=== PATIENT | female | born 1985 ===

== ENCOUNTER 2019-12-04 19:53 | Emergency (ER) | payer BC ==
[2019-12-04] MEDS ORDERED: Hydromorphone 1 mg/ml Ampule IV ONE (20:04)
[2019-12-04] MEDS ORDERED: Ativan 2 MG/1 ML VIAL IV ONE (20:04)
[2019-12-04] MEDS ORDERED: Ativan 2 MG/1 ML VIAL ONE (20:25)
[2019-12-04] MEDS ORDERED: Hydromorphone 1 mg/ml Ampule ONE (20:25)
--- NOTE | 2019-12-04 21:02 | ERPHSYRPT ---
- History of Present Illness Time Seen by Provider: 12/04/19 20:22 Source: patient Exam Limitations: no limitations Patient Subjective Stated Complaint: pt fell down some steps on the bleachers at the [employer]. Triage Nursing Assessment: pt fell down a couple stairs at the [employer] gym at the basketball game, rt ankle displaced and swollen. Physician History: Patient has obvious fracture and dislocation of right ankle. Patient had a fall just prior to arrival. No other injuries. Location: right ankle and leg Quality: sharp Radiation: up right leg Severity: moderate Duration: just [employer] Timing: after fall Modifying factors/associated signs and symptoms: no meds or anything tried Allergies/Adverse Reactions: naproxen [From Aleve] Adverse Reaction (Verified 12/04/19 20:20) Swelling of Face Home Medications: No Reportable Medications [No Reported Medications] 12/04/19 [History] Hx Tetanus, Diphtheria Vaccination/Date Given: (unknown) Hx Influenza Vaccination/Date Given: No Hx Pneumococcal Vaccination/Date Given: No Immunizations Up to Date: No - Review of Systems Constitutional: No Fever, No Chills Eyes: No Symptoms Ears, Nose, & Throat: No Symptoms Respiratory: No Cough, No Dyspnea Cardiac: No Chest Pain, No Edema, No Syncope Abdominal/Gastrointestinal: No Abdominal Pain, No Nausea, No Vomiting, No Diarrhea Genitourinary Symptoms: No Dysuria Musculoskeletal: Deformity (right ankle deformity), Injury, Other, No Back Pain , No Neck Pain Skin: No Rash Neurological: No Dizziness, No Focal Weakness, No Sensory Changes Psychological: No Symptoms Endocrine: No Symptoms All Other Systems: Reviewed and Negative - Past Medical History Pertinent Past Medical History: No Neurological History: No Pertinent History ENT History: No Pertinent History Cardiac History: No Pertinent History Respiratory History: No Pertinent History Endocrine Medical History: No Pertinent History Musculoskeletal History: No Pertinent History GI Medical History: No Pertinent History History: No Pertinent History Psycho-Social History: No Pertinent History Female Reproductive Disorders: No Pertinent History - Past Surgical History Past Surgical History: No - Social History Smoking Status: Never smoker Exposure to second hand smoke: No Drug Use: none Patient Lives Alone: No - Female History Hx Last Menstrual Period: 2 weeks ago Hx Now: No - Nursing Vital Signs Nursing Vital Signs: Initial Vital Signs Temperature 98.4 F 12/04/19 20:00 Pulse Rate 94 H 12/04/19 20:00 Respiratory Rate 18 12/04/19 20:00 Blood Pressure 127/83 12/04/19 20:00 O2 Sat by Pulse Oximetry 97 12/04/19 20:00 Pain Scale Pain Intensity 8 - [place] Coma Score Best Eye Response (Nanette): (4) open spontaneously Best Verbal Response (Nanette): (5) oriented Best Motor Response (Chester): (6) obeys commands [place] Total: 15 - Physical Exam General Appearance: no apparent distress, alert Head Injury: no evidence of injury Eye Exam: PERRL/EOMI ENT Exam: airway nml Neck Exam: normal inspection, No tenderness Respiratory/Chest Exam: normal breath sounds, No chest tenderness, No respiratory distress Cardiovascular Exam: normal heart sounds, regular rate/rhythm Gastrointestinal Exam: soft, No tenderness, No distention, No guarding, No ecchymosis Back Exam: normal inspection, No vertebral tenderness Extremity Exam: normal inspection, normal range of motion, pelvis stable, No deformities Neurologic Exam: alert, oriented x 3, cooperative, sensation nml, No motor deficits Skin Exam: normal color, warm, dry SpO2 Interpretation: normal SpO2: 97 Comment: Obvious right ankle fracture and deformity. No skin tenting. moving all toes, sensation intact. 2+ capillary refill, 2 point tactile discrimination intact. Decrease strength and range of motion with pain. Compartments are soft, nontender. Procedures - Joint Reduction Timeout: Performed Joint Reduction Site: Right, ankle Conscious Sedation: No Reduction Attempts: 1 Pre-Procedure Neurovascular Exam: neurovascular intact, well perfused, no neuro deficit Post Procedure Neurovascular Exam: neurovascular intact, good alignment Post Joint Reduction Film: joint reduced Progress: Right ankle dislocation. Patient was reduced and showed good join alignment on XR. Diludid and ativan for pain control. Ordered Tests: Active Orders 24 hr Category Date Time Status Crutches STAT Care 12/04/19 21:03 Active IV Insertion STAT Care 12/04/19 20:04 Active ANKLE (3 VIEWS) Stat Exams 12/04/19 20:44 Taken LOWER LEG Stat Exams 12/04/19 20:45 Taken Medication Summary Discontinued Medications Generic Name Dose Route Start Last Admin Trade Name Freq PRN Reason Stop Dose Admin Hydromorphone HCl 1 mg 12/04/19 20:04 12/04/19 20:31 Hydromorphone 1 Mg/Ml Ampule IV 12/04/19 20:05 1 mg STAT ONE Administration Hydromorphone HCl Confirm 12/04/19 20:25 Hydromorphone 1 Mg/Ml Ampule Administered 12/04/19 20:26 Dose 1 mg .ROUTE .STK-MED ONE Lorazepam 1 mg 12/04/19 20:04 12/04/19 20:31 Ativan 2 Mg/1 Ml Vial IV 12/04/19 20:05 1 mg STAT ONE Administration Lorazepam Confirm 12/04/19 20:25 Ativan 2 Mg/1 Ml Vial Administered 12/04/19 20:26 Dose 2 mg .ROUTE .STK-MED ONE - Progress Progress: improved Progress Note: 12/04/19 22:16 XR demonstrates a reduced bi-mal fracture. It appears in good alignment. Patient was placed in a boot. She will be non weight bearing. She will follow up with orthopedic surgery tomorrow morning. She will go to clinic at 8 am. Patient is neurovascually intact post reduction with good blood flow. Patient states she feels improved with medication tonight and return should anything change. - Departure Departure Disposition: Home Clinical Impression: Bimalleolar ankle fracture Condition: Stable Critical Care Time: No Referrals: JORGE MONTERO NP [NON-STAFF PHY W/O PRIVILEGES] - Instructions: Ankle Sprain (DC), Ankle Fracture (DC) Additional Instructions: [facility]. See tomorrow morning at 8 am for follow-up.
[2019-12-04 21:49] VITALS: BP 107/53; PULSE 88
[2019-12-04 22:16] VITALS: O2SAT 97
--- NOTE | 2019-12-05 08:44 | XRAY ---
Indication: Pain following fall down stairs. Comparison: None 3 views of the right ankle demonstrates minimally displaced bimalleolar fractures with soft tissue swelling. No other bony, articular, or soft tissue abnormalities.
--- NOTE | 2019-12-05 08:46 | XRAY ---
Indication: Pain following fall down stairs. Comparison: None 2 views of the right lower leg demonstrates minimally displaced bimalleolar fractures with soft tissue swelling. No other bony, articular, or soft tissue abnormalities.
== END 2019-12-04 21:49 | disposition home or self-care (01) ==
LOC: ED 19:53
DX: S82.841A Displaced bimalleolar fracture of right lower leg, initial encounter for closed fracture (principal); W10.8XXA Fall (on) (from) other stairs and steps, initial encounter; Y93.89 Activity, other specified; Y92.211 Elementary school as the place of occurrence of the external cause
CPT/HCPCS: 27810; 73590; 73610; 96374; 96375; 99284; J1170; J2060; L4386